=== PATIENT | female | born 2000 | race Two or more races ===

== ENCOUNTER 2022-09-16 12:09 | Emergency (ER) | payer MEDICAID ==
[~2022-09-16] VITALS: Ht 162.6 cm; Wt 81.6 kg
[2022-09-16 12:31] VITALS: BP 123/94; PULSE 93; RESP 18; TEMP 97; O2SAT 98
--- NOTE | 2022-09-16 12:40 | NUR ---
PT AMB TO BED 2
--- NOTE | 2022-09-16 13:07 | NUR ---
PATIENT PRESENTS TO ED WITH HEAD PAIN AND ABD PAIN THAT RADIATES TO LOWER BACK AND LEFT LOWER LEG. PT STATES SHES BEEN IN PAIN FOR 2 DAYS. PT STATES SHE HAS NASUEA, BLOATING, AND CONSTIPATION. PT STATES SHE FEELS LIKES HE HAS SOB OR ACID REFLUX.PT STATES SHE ALSO FEELS BURNING AND URINARY URGENCY.DENIES V/D; SKIN IS PINK/WARM/DRY; AAOX4 WITH EVEN AND STEADY GAIT; LUNGS CLEAR BL; HR EVEN AND REGULAR; PT DENIES ANY FEVER, CP, OR COUGH AT THIS TIME; PATIENT STATES PAIN OF 8/10 AT THIS TIME; VSS; PATIENT POSITIONED FOR COMFORT; HOB ELEVATED; BEDRAILS UP X2; BED DOWN. ER MD MADE AWARE OF PT STATUS. CALL LIGHT WITH IN REACH. NO KNOWN PMHX NO KNOWN ALLERGIES
--- NOTE | 2022-09-16 13:10 | NUR ---
PT TAKEN TO CT
[2022-09-16] MEDS ORDERED: ONDANSETRON 4 MG ODT PO ONE (13:15)
[2022-09-16] MEDS ORDERED: KETOROLAC 30 MG/ML VIAL IM ONE (13:15)
--- NOTE | 2022-09-16 13:25 | NUR ---
LAB AT BEDSIDE
[2022-09-16 13:31] LABS: BASOPHILS # (AUTO) 0.1 K/uL (0.00-0.22); BASOPHILS % (AUTO) 0.9 % (0.0-2.0); EOSINOPHILS # (AUTO) 0.1 K/uL (0-0.4); EOSINOPHILS % (AUTO) 1.6 % (0.0-4.0); HEMATOCRIT 37.7 % (36-48); HEMOGLOBIN 12.8 g/dL (12.0-16.0); LYMPHOCYTES # (AUTO) 2.7 K/uL (2.5-16.5); LYMPHOCYTES % (AUTO) 35.3 % (20.5-51.1); MEAN CORPUSCULAR HEMOGLOBIN 28 pg (27-31); MEAN CORPUSCULAR HGB CONC 34 g/dL (33-37); MEAN CORPUSCULAR VOLUME 81.1 fL (80-94); MONOCYTES # (AUTO) 0.6 K/uL (0.8-1.0); MONOCYTES % (AUTO) 8.1 % (1.7-9.3); NEUTROPHILS # (AUTO) 4.1 K/uL (1.8-7.7); NEUTROPHILS % (AUTO) 54.1 % (42.2-75.2); PLATELET COUNT (AUTO) 286 K/uL (140-450); RED BLOOD CELL COUNT(AUTO) 4.65 MIL/uL (4.20-5.40); RED CELL DISTRIBUTION WIDTH 14.3 % (11.6-13.7); WHITE BLOOD COUNT (AUTO) 7.6 K/uL (4.8-10.8)
[2022-09-16 13:31] LABS: APPEARANCE,URINE CLEAR (CLEAR); BILIRUBIN,URINE NEGATIVE (NEGATIVE); BLOOD, URINE NEGATIVE (NEGATIVE); COLOR,URINE YELLOW (YELLOW); LEUKOCYTE ESTERASE ,URINE NEGATIVE (NEGATIVE); NITRITE, URINE NEGATIVE (NEGATIVE); PH,URINE 7.5 (5.0-9.0); UGLUCOSE 2+ (NEGATIVE)
--- NOTE | 2022-09-16 13:41 | NUR ---
PT HAS BEEN MEDICATED PER PROVIDERS ORDERS. CALL LIGHT WITHN IN REACH.
[2022-09-16 13:46] LABS: ALBUMIN 3.5 g/dL (3.4-5.0); ANION GAP 10.8 (8-16); CARBON DIOXIDE 27.9 mmol/L (21-32); CREATININE 0.6 mg/dL (0.6-1.3); POTASSIUM 3.7 mmol/L (3.5-5.1); TOTAL BILIRUBIN 0.3 mg/dL (0.0-1.0)
[2022-09-16] MEDS ORDERED: LIDO15CR2 TP (15:18)
[2022-09-16] MEDS ORDERED: ACET-10509 PO (15:18)
[2022-09-16] MEDS ORDERED: METF-346 PO (15:18)
[2022-09-16] MEDS ORDERED: IBUP-2213 PO (15:18)
--- NOTE | 2022-09-16 15:20 | NUR ---
pt has been seen by provider. pt has been made aware of new medical diagnosis of dm. pt understands she must change diet and start to take medication. pt is also aware to make an appointment with primary for glucometer. pt has also been prescribed medication to take home.
--- NOTE | 2022-09-16 15:40 | NUR ---
Patient discharged with v/s stable. Written and verbal after care instructions given and explained. Patient verbalized understanding. Ambulatory with steady gait. All questions addressed prior to discharge. Advised to follow up with PMD.
--- NOTE | 2022-09-16 15:41 | NUR ---
The patient's care was reviewed and supervised by Claudia Young, RN, RN.
[2022-09-16 15:42] VITALS: O2SAT 98
[2022-09-16 15:46] VITALS: BP 109/68; PULSE 82; RESP 18; TEMP 98.1
== END 2022-09-16 15:42 | disposition home or self-care (01) ==
LOC: MED 12:09
DX: R10.9 Unspecified abdominal pain (principal); E11.65 Type 2 diabetes mellitus with hyperglycemia; R11.0 Nausea; R35.0 Frequency of micturition; Z79.84 Long term (current) use of oral hypoglycemic drugs; Z79.899 Other long term (current) drug therapy
CPT/HCPCS: 36415; 74176; 80053; 81003; 81025; 83690; 85025; 96372; 99285; J1885; Q0162